=== PATIENT | male | born 1985 | race American Indian/Alaskan Native ===

== ENCOUNTER 2017-05-20 17:51 | Emergency (ER) | payer SELFPAY ==
--- NOTE | 2017-05-21 03:09 | XRay Report ---
FINAL REPORT EXAM: XR FINGER(S) 2+V LT HISTORY: r/o fx of the 5th digit; pain from injury TECHNIQUE: Three views of the left 5th finger were submitted. FINDINGS: There is no evidence of fracture or dislocation. The interphalangeal joints appear intact. The distal interphalangeal joint is in slight flexion. IMPRESSION: No evidence of fracture or dislocation.
--- NOTE | 2017-05-21 04:23 | Emergency Department Report ---
ED Upper Extremity Inj HPI - General Chief Complaint: Extremity Injury, Upper Stated Complaint: LEFT HAND FINGER PAIN Time Seen by Provider: 05/21/17 02:33 Source: patient Mode of arrival: Ambulatory Limitations: No Limitations - History of Present Illness Initial Comments: This is a 32 y.o. male presents with deformity to left 5th finger. 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 He said it was like this 3 weeks ago but he don't recall when it happened. States it is not in pain. He can straighten it with another finger but it will not stay extended. He notified managed care manager 3 weeks ago of injury when it happened. They told him it appears to be a jammed finger. They did not send him to [facility] because he couldn't remember when or where it exactly happened in the truck he was packing. Patient states he can't recall because it is not in pain and he just kept working. He denies pain, numbness, tingling, and swelling. MD Complaint: Injury to:: left, finger (5th finger) -: week(s) (3) Other Extremity Injury: Fingers: Left Other Injuries: none Handedness: right Place: work ([employer]) Severity scale (0 -10): 4 Improves With: none Worsens With: none Context: injury Associated Symptoms: denies other symptoms. denies: weakness, numbness, neck pain, suspects foreign body, nausea/vomiting, heard/felt popping sensat - Related Data Previous Rx's Medication Instructions Recorded Last Taken Type Cyclobenzaprine [Flexeril 10mg] 10 mg PO Q8H PRN #21 tablet 07/29/14 Unknown Rx Ibuprofen [Motrin 600 MG tab] 600 mg PO Q8H PRN #30 tablet 07/29/14 Unknown Rx Allergies Allergy/AdvReac Type Severity Reaction Status Date / Time No Known Allergies Allergy Verified 01/18/14 11:24 ED Review of Systems ROS: Stated complaint: LEFT HAND FINGER PAIN Other details as noted in HPI Constitutional: denies: chills, fever Respiratory: denies: cough, shortness of breath, wheezing Cardiovascular: denies: chest pain, palpitations Gastrointestinal: denies: abdominal pain, nausea, diarrhea Musculoskeletal: other (flexed left 5th finger, intermittent pain) Neurological: denies: headache, weakness, paresthesias ED Past Medical Hx - Past Medical History Previous Medical History?: No Hx Psychiatric Treatment: No - Surgical History Past Surgical History?: No - Social History Smoking Status: Never Smoker Substance Use Type: None - Medications Home Medications: Home Medications Medication Instructions Recorded Confirmed Last Taken Type Cyclobenzaprine [Flexeril 10mg] 10 mg PO Q8H PRN #21 tablet 07/29/14 Unknown Rx Ibuprofen [Motrin 600 MG tab] 600 mg PO Q8H PRN #30 tablet 07/29/14 Unknown Rx ED Physical Exam - General Limitations: No Limitations General appearance: alert, in no apparent distress - Respiratory Respiratory exam: Present: normal lung sounds bilaterally. Absent: respiratory distress - Cardiovascular Cardiovascular Exam: Present: regular rate, normal rhythm. Absent: systolic murmur, diastolic murmur, rubs, gallop - GI/Abdominal GI/Abdominal exam: Present: soft, normal bowel sounds - Expanded Upper Extremity Exam Left General: Present: normal inspection Shoulder Exam: Present: normal inspection, full ROM Upper Arm exam: Present: normal inspection, full ROM Elbow exam: Present: normal inspection, full ROM Forearm Wrist exam: Present: normal inspection, full ROM Hand Wrist exam: Present: normal inspection, deformity (flexion of 5th DIP, positive passive extension, negative active extension, no swelling or erythema) . Absent: tenderness, swelling, abrasion, laceration, ecchymosis, dislocation, erythema, amputation, nail avulsion, subungual hematoma Neuro motor exam: Present: wrist extension intact, thumb opposition intact, thumb IP flexion intact, thumb adduction intact, fingers 2-5 abduction intact Neurosensory exam: Present: radial nerve intact, median nerve intact Vascular: Present: normal capillary refill, radial pulse (+2) ED Course Vital Signs 05/20/17 18:26 Temperature 99.0 F Pulse Rate 80 Respiratory 18 Rate Blood Pressure 103/66 O2 Sat by Pulse 98 Oximetry ED Medical Decision Making - Radiology Data Radiology results: image reviewed Finger Xray FINDINGS: There is no evidence of fracture or dislocation. The interphalangeal joints appear intact. The distal interphalangeal joint is in slight flexion. IMPRESSION: No evidence of fracture or dislocation. - Medical Decision Making This is a 32 y.o. male presents with deformity of 5th DIP. Patient stable and examined by me. Xray of fingers has been obtained and dictated by radiologist. Patient notified of findings of flexion of distal interphalangeal joint. Susceptible of jersey finger. Finger splint applied. Discharged home and follow up with hand surgeon. Referred to [facility]. Critical care attestation.: If time is entered above; I have spent that time in minutes in the direct care of this critically ill patient, excluding procedure time. ED Disposition Clinical Impression: [place] finger Qualifiers: Encounter type: initial encounter Qualified Code(s): S63.639A - Sprain of interphalangeal joint of unspecified finger, initial encounter Disposition: TO HOME OR SELFCARE Is pt being admited?: No Does the pt Need Aspirin: No Condition: Stable Instructions: Jammed Finger (ED) Additional Instructions: Continue to wear splint to 5th finger of left hand. Follow up with hand specialist at [facility] in 24-72 hours. Referrals: [facility] [Outside] - 3-5 Days Forms: Work/School Release Form(ED) Time of Disposition: 04:43 Print Language: YI
[2017-05-21 04:54] VITALS: BP 108/64
== END 2017-05-21 04:54 | disposition home or self-care (01) ==
LOC: ED 17:51
DX: S63.637A Sprain of interphalangeal joint of left little finger, initial encounter (principal); W23.0XXA Caught, crushed, jammed, or pinched between moving objects, initial encounter; Y93.89 Activity, other specified; Y99.0 Civilian activity done for income or pay; Y92.69 Other specified industrial and construction area as the place of occurrence of the external cause